=== PATIENT | female | born 1955 | race Asian ===

== ENCOUNTER 2019-10-24 17:57 | Emergency (ER) | payer OTHER ==
[~2019-10-24] VITALS: Ht 157.5 cm; Wt 63.6 kg
[~2019-10-24 17:57] MED LIST: NAPR-1025 PO
[2019-10-24] MEDS ORDERED: BENZONATATE 100 MG CAPSULE PO ONE (20:15)
[2019-10-24 20:58] VITALS: BP 141/79
== END 2019-10-24 21:23 | disposition home or self-care (01) ==
LOC: EMS 17:58
DX: S29.011A Strain of muscle and tendon of front wall of thorax, initial encounter (principal); J06.9 Acute upper respiratory infection, unspecified; B97.89 Other viral agents as the cause of diseases classified elsewhere; X50.9XXA Other and unspecified overexertion or strenuous movements or postures, initial encounter; Y93.89 Activity, other specified; Y92.89 Other specified places as the place of occurrence of the external cause; Y99.8 Other external cause status